=== PATIENT | female | born 1960 | race American Indian/Alaskan Native ===

== ENCOUNTER 2016-06-11 10:04 | Outpatient (CLI) | payer MEDICARE ==
--- NOTE | 2016-06-11 14:12 | Mammography Report ---
BILATERAL DIGITAL SCREENING MAMMOGRAM : 06/11/16 10:04:00 CLINICAL: Routine screening. COMPARISON:05/16/15 FINDINGS: The breasts are heterogeneously dense, which may obscure small masses. No mass, architectural distortion or suspicious calcifications. IMPRESSION: No mammographic evidence of malignancy. BI-RADS CATEGORY: 2 -- Benign RECOMMENDATION: Routine mammographic screening in one year. COMMENT: Patient follow-up letters are generated by our [employer] application.
== END 2016-06-11 10:05 | disposition home or self-care (01) ==
LOC: SPVWC 10:04
PROVIDERS: ATTEND Family Medicine
DX: Z12.31 Encounter for screening mammogram for malignant neoplasm of breast (principal)
CPT/HCPCS: 77067; G0202

== ENCOUNTER 2017-03-10 13:12 | Outpatient (CLI) | payer MEDICARE ==
--- NOTE | 2017-03-10 16:34 | Magnetic Resonance Report ---
BILATERAL BREAST MRI WITHOUT AND WITH CONTRAST: 03/10/17 13:12:00 CLINICAL: Newly diagnosed right breast cancer. The path report describes invasive ductal carcinoma, grade 1 and ductal carcinoma in situ, low- intermediate grade with comedonecrosis. Imaging described 11 x 6 by 8mm as at 6 o'clock and a possible second mass at 6 o'clock. COMPARISON:. TECHNIQUE: Axial 1.0-mm T1 without, axial high resolution 2.0-mm T2 and axial 1.0-mm dynamic Vibrant high-resolution postcontrast T1 fat saturation sequences on a 1.5 Ree magnet. The examination was performed with an 8 channel dedicated [employer] breast coil. Post processing with CAD and subtraction was performed on an [email or web address] workstation. 20 cc of Multihance was injected without incident for the contrast portion of the exam. Consent was obtained prior to the administration of the contrast. FINDINGS: Right: Minimal background parenchymal enhancement. An irregular enhancing mass is identified at the biopsy clip in the right breast at 6 o'clock 7.9 cm from the nipple. The mass measures 10.0 x 9.0 x 9.0 mm and demonstrates heterogeneous enhancement with mixed kinetics, 139% peak enhancement and 16% type III washout. Numerous additional solid enhancing masses are identified in a segmental distribution at 6 o'clock and spans approximately 8 cm from posterior toward the nipple. Known cancer is at the anterior aspect. The involved volume of breast tissue measures approximately 8.3 cm AP dimension by 2.5 cm transverse dimension by 2.0 cm craniocaudal dimension. A 3.1 x 2.5 x 2.4 mm suspicious enhancing focus is identified in the lower inner quadrant of the right breast 5.5 cm from the nipple. It demonstrates heterogeneous enhancement with mixed kinetics and 22% type III washout. No suspicious right axillary or right internal mammary lymph nodes. Left: Minimal background parenchymal enhancement. A single focus of non-Mass enhancement in the lower outer quadrant 10.2 cm from the nipple measures 4.7 x 3.7 x 3.1 mm. It demonstrates heterogeneous enhancement with mixed kinetics, 119% peak enhancement and 9% type III washout. No other suspicious enhancement and no mass of the left breast. No suspicious left axillary or left internal mammary lymph nodes. IMPRESSION: 1. Known right breast cancer with multicentric tumor spanning approximately 8 cm anterior to posterior at 6 o'clock. 2. A 3.1 mm suspicious focus of non-Mass enhancement in the lower inner quadrant of the right breast. 3. A 4.7 mm focus of non-Mass enhancement in the lower outer right breast has intermediate suspicion for malignancy and may be amenable to MRI guided biopsy. RIGHT BI-RADS 6 -- Known Cancer LEFT BI-RADS 4 -- Suspicious
== END 2017-03-10 13:13 | disposition home or self-care (01) ==
LOC: SPVIMAG 13:12
PROVIDERS: ATTEND Surgery
DX: C50.111 Malignant neoplasm of central portion of right female breast (principal); Z80.3 Family history of malignant neoplasm of breast
CPT/HCPCS: 0159T; A9577; C8908; 77059

== ENCOUNTER 2017-06-30 11:44 | Outpatient (CLI) | payer MEDICARE ==
--- NOTE | 2017-06-30 15:43 | Mammography Report ---
BONE DEXA:06/30/17 11:44:00 CLINICAL: History of breast cancer on aromatase inhibitor No comparison. TECHNIQUE: Two site bone DEXA performed on an Hologic scanner. FINDINGS: The average BMD of the lumbar spine L1-L4 is 1.1 C4g/cm squared with a T-score of -0.2 and a Z-score of +1.2. The average BMD of the left hip is 1.189g/cm squared with a T-score of +1.0 and a Z-score of +1.7. IMPRESSION: WHO classification: Normal with average fracture risk based on both spine and left hip measurements. RECOMMENDATION: Clinical correlation and routine screening. DEFINITIONS: BMD = Bone Mineral Density T-score = BMD related to mean peak bone mass of young adult (mean expressed in Standard Deviation) Z-score = Age matched BMD expressed in SD World Health Organization (WHO) Diagnostic Criteria Normal T-score > -1 SD Osteopenia T-score between -1 and -2.4 SD Osteoporosis T-score -2.5 SD or below NOTE: BMD is not the only risk factor for fracture. One should also consider factors such as the patient's age, risk of falling, previous osteoporotic fracture, family history of osteoporotic fractures, current smoker, and low body weight. Z-scores are not calculated if >80 years of age.
== END 2017-06-30 11:45 | disposition home or self-care (01) ==
LOC: SPVWC 11:44
PROVIDERS: ATTEND Internal Medicine Hematology & Oncology
DX: Z13.820 Encounter for screening for osteoporosis (principal); Z78.0 Asymptomatic menopausal state; Z85.3 Personal history of malignant neoplasm of breast; Z79.811 Long term (current) use of aromatase inhibitors
CPT/HCPCS: 77080

== ENCOUNTER 2020-07-16 10:20 | Outpatient (CLI) | payer MEDICARE ==
--- NOTE | 2020-07-16 11:47 | Mammography Report ---
DEXA BONE DENSITY SCAN INDICATION / CLINICAL INFORMATION: ON AROMATASE THERAPY/BREAST CA/ BREAST LUMP/. 59 years Female COMPARISON: None available. LUMBAR SPINE (L1-L4): - Bone mineral density (BMD) = 1.112 g/cm2. - T-score = -0.3 - Z-score = 1.3 Change (%) since most recent prior (if available): None available. FEMORAL NECKS: - Left femoral neck Bone mineral density (BMD) = 0.973 g/cm2. - T-score = 0.2 - Z-score = 1.2 Change (%) since most recent prior (if available): None available. IMPRESSION: 1. WHO Classification: Normal bone density. Fracture Risk: Not Increased. BMD Reporting Guidelines (ISCD, 2015) BMD Reporting in Postmenopausal Women and in Men Age 50 and Older * T-scores are preferred. * The WHO densitometric classification is applicable. BMD Reporting in Females Prior to Menopause and in Males Younger Than Age 50 * Z-scores, not T-scores, are preferred. This is particularly important in children. * A Z-score of -2.0 or lower is defined as below the expected range for age, and a Z-score above -2. 0 is within the expected range for age. * Osteoporosis cannot be diagnosed in men under age 50 on the basis of BMD alone. * The WHO diagnostic criteria may be applied to women in the menopausal transition. http://www.iscd.org/official-positions/3068-abwl-lqoolhzd-positions-adult/ Signer Name: Trung Casarez MD Signed: 07/16/2020 11:42 AM Workstation Name: [email or web address]
== END 2020-07-16 10:21 | disposition home or self-care (01) ==
LOC: SPVWC 10:20
PROVIDERS: ATTEND Internal Medicine Hematology & Oncology
DX: C50.111 Malignant neoplasm of central portion of right female breast (principal); N63.0 Unspecified lump in unspecified breast; Z79.811 Long term (current) use of aromatase inhibitors
CPT/HCPCS: 77080